=== PATIENT | female | born 1985 | race African-American/Black ===

== ENCOUNTER 2016-09-26 08:11 | Emergency (ER) | payer BC, OTHER ==
[2016-09-26] MEDS ORDERED: NS 1000 ML 1,000 ML ONE (08:14)
[2016-09-26 08:42] VITALS: BMI 29.8
[2016-09-26] MEDS ORDERED: NS 1000 ML 1,000 ML IV ONE (08:55)
[2016-09-26 10:34] VITALS: BP 111/57
== END 2016-09-26 10:15 | disposition home or self-care (01) ==
LOC: ER 08:11
DX: R42 Dizziness and giddiness (principal); R10.84 Generalized abdominal pain; Z3A.00 Weeks of gestation of pregnancy not specified
CPT/HCPCS: 96365; 99284; A4222

== ENCOUNTER → 2016-11-28 | Outpatient (CLI) | payer BC, OTHER ==
[2016-11-28 16:54] LABS: BASOPHILS % (AUTO) 0.5 % (0.2-1.0); EOSINOPHILS % (AUTO) 0.2 % (0.9-2.9); HEMATOCRIT 34.2 % (36.0-47.0); HEMOGLOBIN 11.5 g/dL (12.0-16.0); LYMPHOCYTES # (AUTO) 1.7 X10^3/uL (1.3-2.9); LYMPHOCYTES % (AUTO) 23.4 % (21.0-51.0); MEAN CORPUSCULAR HEMOGLOBIN 26.8 pg (27.0-34.0); MEAN CORPUSCULAR HGB CONC 33.7 g/dL (33.0-35.0); MEAN CORPUSCULAR VOLUME 79.6 fL (80.0-100.0); MEAN PLATELET VOLUME 8.8 fL (7.4-11.0); MONOCYTES # (AUTO) 0.7 x10^3/uL (0.3-0.8); MONOCYTES % (AUTO) 9.3 % (0.0-13.0); NEUTROPHILS # (AUTO) 4.8 x10^3/uL (2.2-4.8); NEUTROPHILS % (AUTO) 66.6 % (42.0-75.0); PLATELET COUNT 194 X10^3/uL (150.0-450.0); RED BLOOD COUNT 4.29 X10^6/uL (3.5-5.4); RED CELL DISTRIBUTION WIDTH 13.7 % (11.6-16.5); WHITE BLOOD COUNT 7.2 X10^3/uL (3.6-10.0)
[2016-11-28 16:55] LABS: BILIRUBIN,URINE NEGATIVE (NEGATIVE); BLOOD/HEMOGLOBIN,URINE 4+ (NEGATIVE); GLUCOSE, URINE NEGATIVE (NEGATIVE); KETONES,URINE NEGATIVE (NEGATIVE); LEUKOCYTE ESTERASE ,URINE 1+ (NEGATIVE); NITRITES,URINE NEGATIVE (NEGATIVE); PH,URINE 6.5 (5.0 - 8.0); PROTEIN,URINE 1+ (NEGATIVE); UROBILINOGEN,URINE NORMAL (NORMAL)
[2016-11-28 16:58] LABS: BLOOD UREA NITROGEN 9 mg/dL (7-18); CALCIUM 8.5 mg/dL (8.5-10.1); CARBON DIOXIDE 19.8 mmol/L (21-32); CHLORIDE 104 mmol/L (98-107); CREATININE 0.82 mg/dL (0.55-1.02); SODIUM 135 mmol/L (136-145); eGFR BLACK RACES > 60 (>60); eGFR NON BLACK RACES > 60 (>60)
[2016-11-28 17:03] LABS: APPEARANCE,URINE HAZY (CLEAR); BACTERIA,URINE TRACE /HPF (NEGATIVE); COLOR,URINE YELLOW (YELLOW); SQUAMOUS EPITHELIAL CELL,UR FEW /HPF (NEGATIVE)
== END ==
LOC: LAB 16:18
PROVIDERS: ATTEND Specialist
DX: Z01.818 Encounter for other preprocedural examination (principal); Z01.812 Encounter for preprocedural laboratory examination; Z34.83 Encounter for supervision of other normal pregnancy, third trimester
CPT/HCPCS: 36415; 80048; 81001; 85025; 85610; 85730; 86592; 86850; 86900; 86901

== ENCOUNTER 2016-11-30 06:38 | Inpatient (IN) | payer BC, OTHER ==
[~2016-11-30 06:38] MED LIST: ANCEF VIAL 1 GM ONE; D5 1/2 NS 1L W PITOCIN 20 UNITS/L 20 UNITS/1,000 ML BAG IV ONE; LR 1000 ML IV 1,000 ML IV ONE; NS 50 ML IV + SPIKE MINIBAG* 50 ML IV ONE; PITOCIN ONE
[2016-11-30] MEDS ORDERED: LR 1000 ML IV 1,000 ML IV ONE (06:58)
[2016-11-30] MEDS ORDERED: DURAMORPH ONE (06:59)
[2016-11-30] MEDS ORDERED: ANCEF VIAL 1 GM 1 GM in NS 50 ML IV + SPIKE MINIBAG* 50 ML IV PRN (07:26)
[2016-11-30] MEDS ORDERED: D5 1/2 NS 1000 ML 1,000 ML IV SCH (07:26)
[2016-11-30] MEDS ORDERED: NS IRRIGATION 1000 ML 1,000 ML IR ONE (08:13)
[2016-11-30 08:26] LABS: BILIRUBIN,URINE NEGATIVE (NEGATIVE); BLOOD/HEMOGLOBIN,URINE 4+ (NEGATIVE); GLUCOSE, URINE NEGATIVE (NEGATIVE); KETONES,URINE NEGATIVE (NEGATIVE); LEUKOCYTE ESTERASE ,URINE NEGATIVE (NEGATIVE); NITRITES,URINE POSITIVE (NEGATIVE); PH,URINE 6.5 (5.0 - 8.0); PROTEIN,URINE 1+ (NEGATIVE); UROBILINOGEN,URINE NORMAL (NORMAL)
[2016-11-30 08:38] LABS: APPEARANCE,URINE CLEAR (CLEAR); BACTERIA,URINE NEGATIVE /HPF (NEGATIVE); COLOR,URINE YELLOW (YELLOW); RBC,URINE RARE /HPF (NEGATIVE); SQUAMOUS EPITHELIAL CELL,UR FEW /HPF (NEGATIVE)
[2016-11-30] MEDS ORDERED: REGLAN INJ 10 MG VIAL IVP PRN ×2 (08:47→08:56)
[2016-11-30] MEDS ORDERED: PHENERGAN INJ 25 MG IVP PRN (08:47)
[2016-11-30] MEDS ORDERED: ZOFRAN INJ 4 MG VIAL IVP PRN ×2 (08:47→08:56)
[2016-11-30] MEDS ORDERED: BENADRYL INJ 50 MG VIAL IVP PRN ×2 (08:47→08:56)
[2016-11-30] MEDS ORDERED: NARCAN INJ IVP PRN (08:56)
[2016-11-30] MEDS ORDERED: ADACEL TDaP IM ONE (08:56)
[2016-11-30] MEDS ORDERED: D5 1/2 NS 1000 ML 1,000 ML with PITOCIN 20 UNITS IV SCH ×2 (09:00)
[2016-11-30] MEDS ORDERED: ZOFRAN INJ 4 MG VIAL ONE (10:32)
[2016-11-30] MEDS ORDERED: EPHEDRINE SULFATE INJ ONE (10:32)
[2016-11-30] MEDS ORDERED: DIPRIVAN VIAL ONE (10:32)
[2016-11-30] MEDS: ZANTAC PO SCH ×2 (11:20→20:27)
[2016-11-30] MEDS: PRENATAL PLUS PO SCH (11:20)
[2016-11-30] MEDS: TORADOL 30 MG VIAL IVP PRN (14:05)
[2016-11-30] MEDS: MYLICON TAB 80 MG CHEW PO PRN (20:27)
[2016-12-01 04:30] LABS: HEMATOCRIT 31.4 % (36.0-47.0); HEMOGLOBIN 10.3 g/dL (12.0-16.0)
[2016-12-01] MEDS: MYLICON TAB 80 MG CHEW PO PRN (05:25)
[2016-12-01] MEDS: TORADOL 30 MG VIAL IVP PRN (05:25)
[2016-12-01] MEDS: ZANTAC PO SCH ×2 (08:42→20:27)
[2016-12-01] MEDS: PRENATAL PLUS PO SCH (08:42)
[2016-12-01] MEDS: COLACE CAP 100 MG PO SCH ×2 (09:05→20:27)
[2016-12-01] MEDS: MOTRIN TAB 800 MG PO PRN ×2 (09:05→17:49)
[2016-12-01] MEDS: PERCOCET TAB 5/325 MG PO PRN ×2 (13:10→20:27)
[2016-12-01] MEDS: BACTROBAN OINT TOP SCH (13:19)
[2016-12-02] MEDS: BACTROBAN OINT TOP SCH ×2 (00:07→06:17)
[2016-12-02] MEDS: MOTRIN TAB 800 MG PO PRN ×2 (01:11→10:36)
[2016-12-02] MEDS: PERCOCET TAB 5/325 MG PO PRN (05:46)
[2016-12-02 07:56] VITALS: BP 89/52
[2016-12-02] MEDS: ZANTAC PO SCH (08:15)
[2016-12-02] MEDS: COLACE CAP 100 MG PO SCH (08:15)
[2016-12-02] MEDS: PRENATAL PLUS PO SCH (08:15)
== END 2016-12-02 13:14 | disposition home or self-care (01) | DRG 766 ==
LOC: LD 06:38 → MED/SURG 09:53
PROVIDERS: ADMIT Specialist; ATTEND Specialist
PROC: 10D00Z1 Extraction of Products of Conception, Low, Open Approach (ICD-10-PCS; principal; 2016-11-30 07:30)
DX: O34.211 Maternal care for low transverse scar from previous cesarean delivery (principal); Z37.0 Single live birth; N85.8 Other specified noninflammatory disorders of uterus; Z3A.39 39 weeks gestation of pregnancy
CPT/HCPCS: 36415; 81001; 85014; 85018; 87086; 94640; A4222; S0197; J0690; J1200; J1885; J2310; J2405; J2590; J3490; J7120